=== PATIENT | female | born 2000 | race Caucasian/White ===

== ENCOUNTER 2023-03-02 00:54 | Emergency (ER) | payer BC, SELFPAY ==
[2023-03-02 00:55] VITALS: BP 158/105; PULSE 89; RESP 15; TEMP 36.2; O2SAT 99; BMI 27.4
--- NOTE | 2023-03-02 01:16 | CT_ITS ---
INDICATION: abd pain EXAMINATION: CT ABDOMEN AND PELVIS WITH CONTRAST - CT Abdomen And Pelvis W/ Contrast Injection TECHNIQUE: Helically acquired images were obtained of the abdomen and pelvis following IV contrast. A radiation dose optimization technique was used for this scan. IV Contrast dosage and agent: 100 mL Isovue-370 Oral contrast: None. COMPARISON: None. FINDINGS: LOWER CHEST: Lung bases are clear. No cardiomegaly or pericardial effusion. LIVER: Homogeneous. Borderline hepatomegaly. No focal mass. GALLBLADDER AND BILIARY TREE: No calcified gallstones. No gallbladder distension or wall edema. No intra- or extrahepatic biliary ductal dilation. PANCREAS: No focal cystic or solid mass. SPLEEN: Normal size without focal cystic or solid mass. ADRENAL GLANDS: No nodules. KIDNEYS AND URETERS: Normal renal size and position. No hydronephrosis. PERITONEUM: No ascites or free air. No other fluid collection. BOWEL: No evidence of acute appendicitis. No stomach or bowel distension. No focal inflammatory change. LYMPH NODES: Scattered subcentimeter mesenteric lymph nodes.. VESSELS: Aorta is non-dilated. URINARY BLADDER: Unremarkable. REPRODUCTIVE ORGANS: Anterior uterus with Intrauterine device in appropriate position. Unremarkable ovaries with small follicles.. ABDOMINAL WALL: Small fat-containing umbilical hernia without inflammation. No discrete abdominal or pelvic wall hernia. BONES: No lytic or blastic abnormality. CT/Abdomen/Pelvis W IV Cont ONLY IMPRESSION: No specific finding to explain patient''s pain. Borderline hepatomegaly. Scattered nonspecific subcentimeter reactive mesenteric lymph nodes. Electronically Signed: Luigi Sanford MD at 3:02 EST ,
[2023-03-02] MEDS: Ondansetron 4 MG/2 ML Vial IV (01:28)
[2023-03-02] MEDS: Morphine 4 MG/ML Syringe IV (01:28)
[2023-03-02] MEDS: 0.9% Normal Saline (1000mL) 1,000 ML 999 ML IV (01:28)
[2023-03-02 01:37] LABS: Bacteria 0 SEEN /hpf (None Seen); Mucous, Urine 0 SEEN /hpf (<or=2+); Red Blood Cells-Urine 0 SEEN /hpf (0-5); White Blood Cells 0 SEEN /hpf (0-5)
[2023-03-02 01:38] LABS: Absolute Lymphocyte Count 2.61 X10^3/uL (0.83-4.51); Absolute Neutrophil Count 4.6 X10^3/uL (2.0-7.7); Basophil# 0.05 X10^3/uL; Basophil% 0.6 % (0-1); Eosinophil# 0.04 X10^3/uL; Eosinophils% 0.5 % (0-5); Hematocrit 42.1 % (37-47); Lymphocyte # 2.61 X10^3/ul (0.83-4.51); Lymphocyte % 32.1 % (19-41); Mean Corp Hgb Conc 33.3 g/dL (32-36); Mean Corpuscular Hgb 29.8 pg (27.0-32.0); Mean Corpuscular Volume 89.6 fL (81-99); Mean Platelet Vol. 9.8 fl (6.2-12.0); Monocyte# 0.83 X10^3/uL; Monocyte% 10.2 % (0-10); NRBC Flagged by Analyzer 0 % (0-5); Neutrophil # 4.55 X10^3/uL (2.7-7.7); Neutrophil % 56.1 % (47-70); Platelet Count 201 K/mm3 (150-450); RBC Distribution Width CV 12.2 % (11.6-14.6); RBC Distribution Width SD 40.3 fl (35.1-43.9); White Blood Count 8.1 K/mm3 (4.4-11.0)
[2023-03-02 01:38] LABS: Color, Urine Yellow (Yellow); Glucose, Dipstick Normal (Normal); Ketone-Dipstick Negative (Negative); Leukocyte Esterase-Dipstick Negative /ul (Negative); Nitrite-Dipstick Negative (Negative); Occult Blood-Urine Negative /ul (Negative); Protein-Dipstick Negative (Negative); Specific Gravity, Urine 1.015 (1.002-1.030); Urine Bilirubin Dipstick Negative (Negative); Urine Clarity Clear (Clear); Urine Urobilinogen Normal (Normal)
[2023-03-02 01:53] LABS: Internal QC Validated? YES +Cl - CLEAR BKGD; Pregnancy, Serum, hCG Quali. NEGATIVE Negative
[2023-03-02 01:56] LABS: AST(SGOT) 115 U/L (15-37); Alanine Aminotransfer ALT/SGPT 52 U/L (13-56); Albumin, Serum 4.1 g/dL (3.2-5.0); Alkaline Phosphatase 64 U/L (45-117); Anion Gap 6 (5-15); BUN 19 mg/dL (7-18); BUN/Creat Ratio 17.1 RATIO (10-20); Bilirubin, Direct 0.19 mg/dL (0.00-0.30); Calcium,Total 9.5 mg/dL (8.5-10.1); Chloride 104 mmol/L (98-107); Creatinine, Serum 1.11 mg/dL (0.55-1.02); EST Glomerular Filtration Rate 65 mL/min (>60); Est Glom Filt Rate - Afr Amer 79 mL/min (>60); Estimated Creatinine Clearance 83.36 ml/min; Globulin 3.5 g/dL (2.2-4.2); Glucose 106 mg/dL (74-106); Lipase 22 U/L (13-75); Potassium 3.7 mmol/L (3.5-5.1); Protein, Total 7.6 g/dL (6.4-8.2); Sodium Level 138 mmol/L (136-145)
[2023-03-02 01:59] LABS: Lactic Acid 0.7 mmol/L (0.4-1.9)
--- NOTE | 2023-03-02 02:07 | EDS_ITS ---
HPI History of Present Illness Chief Complaint: Abd Pain Informant: patient and friend Narrative Narrative: Patient is a 22-year-old female with no significant past medical history. She states that she noticed generalized abdominal pain for the past 2 to 3 days. She states she did not think much of this as she did a new ab workout prior to the pain beginning. She states however the soreness from the workout resolved but the pain persisted and actually worsened and she states moved more to the right lower quadrant. She states this all occurred today and that with this she had a bout of vomiting and loose stool. She denies any known sick contacts. Sh e denies any vaginal discharge or concern for STD or chance of . Because of the worsening pain she is concern for potential infection and therefore comes in for evaluation [facility] Medical History Hemorrhage following tonsillectomy and adenoidectomy Medical History no medical history Home Medications ondansetron 4 mg disintegrating tablet 4 mg PO TID PRN nausea and vomiting #21 tabs 03/02/23 [Rx Last Taken Unknown] oxycodone-acetaminophen 5 mg-325 mg tablet (Percocet) 1 tab PO 4X/DAY PRN PRN pain 3 days #12 tabs 03/02/23 [Rx Last Taken Unknown] Allergy/AdvReac Type Severity Reaction Status Date / Time No Known Allergies Allergy Verified 03/02/23 01:00 Surgical History (Updated 03/02/23 @ 00:58 by Margaret Valentin) [place] teeth removed Social History Smoking Status: Never smoker [facility] ED Constitutional Constitutional ED: Denies chills or fever(s) ENT ENT ED: Denies sore throat Cardiovascular Cardiovascular: Denies chest pain Respiratory/Chest Respiratory/Chest: Denies cough or dyspnea Gastrointestinal Gastrointestinal: Reports abdominal pain, diarrhea, nausea and vomiting Genitourinary Genitourinary ED: Denies dysuria or hematuria Musculoskeletal Musculoskeletal: Denies back pain or myalgias Integumentary Denies rash Neurologic Neurologic: Denies headache(s) Hematologic/Lymphatic Hematologic/Lymphatic: Denies easy bleeding or easy bruising EXAM Physical Exam Const Vital Signs: 03/02/23 00:55 Temperature 97.2 F L Temperature Source Temporal Pulse Rate 89 Respiratory Rate 15 Blood Pressure 158/105 H Blood Pressure Mean 122 Pulse Ox 99 Oxygen Delivery Method Room Air Positive well nourished and well developed General Appearance ED: well developed; Negative for pallor HEENT Reports moist mucous membranes HEENT Narrative: No signs of infection noted in the posterior pharynx Eyes PERRL and EOMs intact bilaterally General Eye ED: Negative for scleral icterus Neck supple Neck Narrative: No nuchal rigidity or meningeal signs Resp normal respiratory effort and clear to auscultation bilaterally Cardio regular rate and regular rhythm Rate: other Other Details: Regular rate and rhythm without murmurs rubs or gallops Radial and carotid pulses are equal and symmetric GI non-distended GI Narrative: Abdomen is soft and nondistended with normal active bowel sounds. There is pain with palpation and voluntary guarding in the right lower quadrant over McBurney's point. Negative rebound. Positive heel strike psoas and obturator signs. Auscultation: normoactive bowel sounds Palpation: soft Back/Spine no CVA tenderness Extremity normal to inspection Neuro oriented x3, CN's II-XII intact bilaterally and no sensory deficits noted Sensorium / Orientation: alert Motor Exam: strength 5/5 throughout Psych mental status grossly normal Skin no rashes or lesions noted General Skin Exam: Negative for jaundice or pallor MDM MDM MDM Narrative Medical decision making narrative: Patient arrived to the ER hypertensive but otherwise with stable vitals. With her report of generalized pain now greatest in the right lower quadrant with a bout of vomiting and diarrhea there is concern for acute appendicitis versus kidney stone versus biliary colic versus pancreatitis versus colitis versus viral gastroenteritis. Secondary to his basic labs were obtained as well as a CT scan with IV contrast of the abdomen and pelvis. Labs revealed no clinically significant findings without leukocytosis left shift or lactic acidosis. CT scan revealed no signs of infection or obstruction or perforation. The IUD is in place and there are small ovarian follicles but no large cyst that would indicate potential torsion. Also patient denied any discharge or concern for STD going against potential pelvic inflammatory disease. Therefore at this time with negative CT scan as well as normal laboratory values I do not feel there is need for further inpatient evaluation and patient is otherwise safe for d ischarge History & Record Review Discussion w/independent historian: Patient and Friend Lab Data Attestation: I reviewed the patient's lab results. Labs: Laboratory Results - last 24 hr 03/02/23 03/02/23 01:25 01:28 WBC 8.1 RBC 4.70 Hgb 14.0 Hct 42.1 MCV 89.6 MCH 29.8 MCHC 33.3 RDW Std Deviation 40.3 RDW Coeff of Ciara 12.2 Plt Count 201 MPV 9.8 Immature Gran % (Auto) 0.500 Neut % (Auto) 56.1 Lymph % (Auto) 32.1 [place] % (Auto) 10.2 H Eos % (Auto) 0.5 Baso % (Auto) 0.6 Absolute Neuts (auto) 4.6 Absolute Lymphs (auto) 2.61 Nucleated RBC % 0 Sodium 138 Potassium 3.7 Chloride 104 Carbon Dioxide 28.0 Anion Gap 6 BUN 19 H Creatinine 1.11 H Estim Creat Clear Calc 83.36 Est GFR (MDRD) Af Amer 79 Est GFR (MDRD) Non-Af 65 BUN/Creatinine Ratio 17.1 Glucose 106 Lactic Acid 0.7 Calcium 9.5 Total Bilirubin 0.40 Direct Bilirubin 0.19 AST 115 H ALT 52 Alkaline Phosphatase 64 Total Protein 7.6 Albumin 4.1 Globulin 3.5 Lipase 22 Serum , Qual NEGATIVE Urine Color Yellow Urine Clarity Clear Urine pH 6.0 Ur Specific [place] 1.015 Urine Protein Negative Urine Glucose (UA) Normal Urine Ketones Negative Urine Occult Blood Negative Urine Nitrite Negative Urine Bilirubin Negative Urine Urobilinogen Normal Ur Leukocyte Esterase Negative Radiography Diagnostic Testing: Clinical Impression(s) from Imaging Studies Abdomen/Pelvis CT 03/02/23 01:16 IMPRESSION: No specific finding to explain patient''s pain. Borderline hepatomegaly. Scattered nonspecific subcentimeter reactive mesenteric lymph nodes. Electronically Signed: Luigi Sanford MD at 3:02 EST Reading Location ID and State: [facility] / [place] Tel , Service support , Discharge Plan Triage Chief Complaint: Abd Pain ED Provider: Adi Shepherd Dx/Rx/DC Orders Clinical Impression: Nonspecific abdominal pain Instructions: Abdominal Pain Prescriptions: New oxycodone-acetaminophen [Percocet] 5-325 mg tablet 1 tab PO 4X/DAY PRN PRN (Reason: pain) 3 Days Qty: 12 0RF ondansetron 4 mg tablet,disintegrating 4 mg PO TID PRN (Reason: nausea and vomiting) Qty: 21 0RF Primary Care Provider: TOMASZ INRGAM Referrals: TOMASZ INGRAM [Other] Activity Restrictions/Additional Instructions: Your CT scan did not show any signs of acute appendicitis or kidney stone or large ovarian cyst. Take the prescribed medication as directed to help control pain but if you develop a fever of 100.4 or higher or have worsening pain or any further concerns please return for repeat evaluation Disposition Disposition: Home, Self Care Capacity Legal Senior Marketing Manager Reflex Medical hold order details:: IF a medical hold is selected below, a suggested order for a MEDICAL HOLD will reflex upon signing the document. Next of kin: [place] law dictates a PRIORITY LIST for identifying legal decision-maker/legal next of kin in the following order (LNOK): 1st: The patient?s legal guardian, if any 2nd: The patient's spouse (if status is questionable, consult Risk Management) 3rd: The patient?s adult child(suzy) (majority, if multiple children) 4th: The patient?s parents 5th: The patient?s adult siblings (majority, if multiple children siblings)
[2023-03-02 03:34] VITALS: BP 139/97; PULSE 71; RESP 15; O2SAT 98
[2023-03-02 04:59] LABS: Squamous Epithelial Cells - UA 0-5 SEEN /hpf (5-10)
== END 2023-03-02 03:58 | disposition home or self-care (01) ==
PROVIDERS: Emergency Provider Emergency Medicine; Visit Provider Emergency Medicine
DX: R10.84 Generalized abdominal pain (principal); R11.2 Nausea with vomiting, unspecified; R19.7 Diarrhea, unspecified; Z97.5 Presence of (intrauterine) contraceptive device
CPT/HCPCS: 74177; 80048; 80076; 81001; 83605; 83690; 84703; 85025; 96361; 96374; 96375; 99283; Q9967; J2405

== ENCOUNTER → 2023-03-10 | Outpatient (CLI) | payer BC, SELFPAY ==
[2023-03-12 06:10] LABS: Chlamydia By Nucleic Acid AMP Negative (Negative); Gonococcus By Nucleic Acid AMP Negative (Negative)
[2023-03-14 18:53] LABS: HPV Reflexed? NOT INDICATED
== END | disposition home or self-care (01) ==
LOC: LABSPEC 11:46
PROVIDERS: Referring Provider Nurse Practitioner Women's Health; Visit Provider Nurse Practitioner Women's Health
DX: Z12.4 Encounter for screening for malignant neoplasm of cervix (principal); Z20.2 Contact with and (suspected) exposure to infections with a predominantly sexual mode of transmission; R10.2 Pelvic and perineal pain
CPT/HCPCS: 87070; 87205; 87491; 87591; 88175; G0145